=== PATIENT | male | born 1950 | race Caucasian/White ===

== ENCOUNTER 2017-07-17 19:52 | Observation (INO) | payer MEDICARE ==
[2017-07-17] MEDS ORDERED: METHYLPREDNISOLONE PF 125MG/VIAL IVP ONE (20:03)
[2017-07-17] MEDS ORDERED: IPRATROPIUM/ALBUTEROL (0.5MG/3MG) NEB INH ONE (20:03)
--- NOTE | 2017-07-17 20:09 | Emergency Department Record ---
History of Present Illness - General Stated Complaint: NASIR,VOMITTING Time Seen by Provider: 07/17/17 20:03 Source: Patient Mode of Arrival: Ambulatory Limitations: No limitations - History of Present Illness Initial Comments: 67 yo male presents with cough and shortness of breath that have been progressive for several weeks. He has a history of COPD. He does continue to smoke. He currently has increased cough and productive discolored sputum. No chest pain except occasionally hurts to cough. No hemoptysis. No edema. He does not follow closely with a PCP. He has prior admissions for COPD and carbon monoxide exposure. MD Complaint: Cough, Shortness of breath -: Days(s) Severity: Moderate Consistency: Constant Improves With: Nothing Worsens With: Coughing Known History Of: COPD Context: Recent URI, Other (smoker) Associated Symptoms: Cough Treatments Prior to Arrival: None - Related Data Allergies Allergy/AdvReac Type Severity Reaction Status Date / Time No Known Drug Allergies Allergy Verified 07/18/17 00:18 Review of Systems Constitutional: Reports: Malaise. Denies: Chills, Fever Eyes: Denies: Eye discharge ENT: Reports: Congestion Respiratory: Reports: Cough, Dyspnea, Wheezes. Denies: Hemoptysis Cardiovascular: Denies: Chest pain, Edema, Palpitations, Syncope Endocrine: Reports: Fatigue. Denies: Polydipsia, Polyuria Gastrointestinal: Denies: Abdominal pain, Constipation, Diarrhea, Nausea, Vomiting Genitourinary: Denies: Dysuria, Frequency, Hematuria, Urgency Musculoskeletal: Denies: Arthralgia, Back pain, Joint swelling, Myalgia Skin: Denies: Bruising, Change in color, Rash Neurological: Denies: Confusion, Headache, Numbness, Vertigo, Weakness Psychiatric: Denies: Anxiety Hematological/Lymphatic: Denies: Blood Clots, Easy bleeding, Easy bruising, Swollen glands Physical Exam - General General Appearance: Alert, Oriented x3, Cooperative, No acute distress Limitations: No limitations - Head Head exam: Normal inspection - Eye Eye exam: Normal appearance, PERRL. negative: Conjunctival injection, Periorbital swelling, Scleral icterus - ENT ENT exam: Normal exam, Mucous membranes moist, Normal orophraynx Ear exam: Normal external inspection Nasal Exam: Normal inspection Mouth exam: Normal external inspection Teeth exam: Normal inspection Throat exam: Normal inspection. negative: Tonsillar erythema, Tonsillomegaly, Tonsillar exudate, R peritonsillar mass, L peritonsillar mass - Neck Neck exam: Normal inspection, Full ROM. negative: Lymphadenopathy, Tenderness - Respiratory Respiratory exam: Accessory muscle use, Decreased breath sounds, Prolonged expiratory, Rhonchi, Wheezes. negative: Normal lung sounds bilaterally, Chest wall tenderness, Respiratory distress - Cardiovascular Cardiovascular Exam: Normal rhythm, Normal heart sounds, Tachycardia Peripheral Pulses: 2+: Radial (R), Radial (L) - GI/Abdominal GI/Abdominal exam: Soft. negative: Tenderness - Rectal Rectal exam: Deferred - exam: Deferred - Extremities Extremities exam: Normal inspection, Full ROM, Normal capillary refill. negative: Pedal edema, Tenderness - Back Back exam: Reports: Normal inspection, Full ROM. Denies: Muscle spasm, Rash noted, Tenderness - Neurological Neurological exam: Alert, Normal gait, Oriented X3 - Psychiatric Psychiatric exam: Normal affect, Normal mood - Skin Skin exam: Dry, Intact, Normal color, Warm Course - Reevaluation(s) Reevaluation #1: EKG 20:31 NSR Rate is 92, intervals RBBB, axis normal, ST NS changes, No old ekg 07/17/17 20:49 07/17/17 20:50 The CBC was reviewed Elevated WBC of 15.9 COHB 5 which is normal for a smoker Medical Decision Making - Lab Data Result diagrams: 07/17/17 20:15 07/17/17 20:15 Disposition Disposition: Admit Clinical Impression: COPD exacerbation Disposition: Still a Patient at [facility] Decision to Admit: Admit from ER Decision to Admit Date: 07/17/17 Decision to Admit Time: 23:00 Time of Disposition: 23:00 Quality - Quality Measures Quality Measures: N/A - Blood Pressure Screening Does Patient Have Any of the Following: No Blood Pressure Classification: Hypertensive Reading Systolic Measurement: 148 Diastolic Measurement: 72 Screening for High Blood Pressure: < Pre-Hypertensive BP, F/U Documented > [ [id number]] Pre-Hypertensive Follow-up Interventions: Referral to alternative/primary care provider.
[2017-07-17 20:35] LABS: HEMATOCRIT 46.2 % (42.0-52.0); HEMOGLOBIN 15.2 gm/dl (14.0-18.0); MEAN CELL VOLUME 92.8 fl (81-97); MEAN CORPUSCULAR HEMOGLOBIN 30.5 pg (27-33); MEAN CORPUSCULAR HGB CONC 32.9 g/dl (32-36); MEAN PLATELET VOLUME 9.7 fl (7.4-10.4); PLATELET COUNT 284 K/uL (130-400); RED BLOOD COUNT 4.98 M/uL (4.40-5.70); RED CELL DISTRIBUTION WIDTH 13.5 % (11.5-14.5); WHITE BLOOD COUNT W/O DIFF 15.9 K/uL (4.2-12.2)
[2017-07-17 20:47] LABS: BLOOD UREA NITROGEN 20 mg/dL (8-23); CREATININE 1.1 mg/dL (0.7-1.2); EST GLOMERULAR FILTRATION RATE > 60 mL/min; INFLUENZA A NEGATIVE (NEGATIVE); INFLUENZA B NEGATIVE (NEGATIVE); TOTAL PROTEIN 7.6 g/dL (6.6-8.7)
[2017-07-17 20:49] LABS: GLUCOSE,RANDOM 162 mg/dL (74-109)
[2017-07-17 20:52] LABS: ALB/GLOB RATIO 0.9 (1.1-1.8); ALBUMIN 3.7 g/dL (4.0-5.0); ALKALINE PHOSPHATASE 84 U/L (40-129); ALT/SGPT 17 U/L (<41); AST/SGOT 18 U/L (10.0-50.0)
[2017-07-17 21:33] LABS: URINE APPEARANCE CLEAR; URINE BILIRUBIN NEGATIVE (NEGATIVE); URINE BLOOD TRACE-I (NEGATIVE); URINE COLOR YELLOW; URINE GLUCOSE (UA) NEGATIVE (NEGATIVE); URINE KETONE NEGATIVE (NEGATIVE); URINE LEUKOCYTE ESTERASE NEGATIVE (NEGATIVE); URINE NITRITE NEGATIVE (NEGATIVE); URINE UROBILINOGEN 0.2 E.U./dL (0.20 - 1.00)
[2017-07-17 21:35] LABS: URINE BACTERIA NONE SEEN; URINE EPITHELIAL CELLS 0 - 2 (FEW); URINE RBC 0 - 2 (NONE SEEN); URINE WBC 0 - 2 (0-2/hpf)
[2017-07-17] MEDS ORDERED: CEFTRIAXONE SODIUM 1 GM in 0.9 % SODIUM CHLORIDE 100ML 100 ML IVPB SCH (23:40)
[2017-07-17] MEDS ORDERED: METHYLPREDNISOLONE PF 125MG/VIAL IVP SCH (23:40)
[2017-07-17] MEDS ORDERED: AZITHROMYCIN 500 MG in 0.9 % SODIUM CHLORIDE 250ML 250 ML IVPB SCH (23:40)
[2017-07-17] MEDS ORDERED: ALBUTEROL SULFATE (0.083%) 2.5 MG/3 ML NEB INH PRN (23:40)
[2017-07-17] MEDS ORDERED: ACETAMINOPHEN 500 MG TABLET PO PRN (23:40)
[2017-07-18] MEDS ORDERED: AZITHROMYCIN 500 MG in 0.9 % SODIUM CHLORIDE 250ML 250 ML IVPB SCH (01:30)
[2017-07-18] MEDS: METHYLPREDNISOLONE PF 125MG/VIAL IVP SCH ×2 (05:05→12:38)
[2017-07-18] MEDS: IPRATROPIUM/ALBUTEROL (0.5MG/3MG) NEB INH SCH ×3 (06:06→15:16)
--- NOTE | 2017-07-18 08:43 | RADIOLOGY REPORT ---
EXAM: CHEST 2 VIEWS HISTORY: DIFFICULTY IN BREATHING. TECHNIQUE: PA and lateral views. COMPARISON: None. FINDINGS: Heart size is within normal limits. No definite acute infiltrate seen. The lungs appear somewhat hyperinflated suggesting underlying COPD. No pleural effusion or pneumothorax evident. IMPRESSION: 1. THE LUNGS APPEAR SOMEWHAT HYPERINFLATED. 2. NO ACUTE INFILTRATE EVIDENT. JOB NUMBER: [id number] MTDD
[2017-07-18] MEDS ORDERED: ENOXAPARIN 40 MG/0.4 ML SYR SC SCH (10:00)
[2017-07-18] MEDS ORDERED: AZITHROMYCIN 500 MG TABLET PO SCH (10:00)
[2017-07-18] MEDS ORDERED: CEFTRIAXONE SODIUM 1 GM in 0.9 % SODIUM CHLORIDE 100ML 100 ML IVPB SCH (10:00)
--- NOTE | 2017-07-18 17:36 | Discharge Note ---
VTE H&P Assessment - Risk for VTE Risk for VTE: Yes Risk Level: Low Risk Assessment Date: 07/18/17 Risk Assessment Time: 17:30 VTE Orders Placed or Will Be Placed: Yes Discharge Medications - Discharge Medications Prescriptions: Albuterol Sulfate [Ventolin Hfa] 1 - 2 puff IH .EVERY 4-6 HRS PRN #1 inhaler PRN Reason: Wheezing Albuterol Sulfate 0.083% [Neb] 2.5 mg INH RESP.Q4H.WA PRN #120 nebulization solution PRN Reason: Difficulty In Breathing Azithromycin [Zithromax] 500 mg PO DAILY #10 tab Prednisone [Prednisone 10Mg] 10 mg PO ASDIR #30 tab Home Medications: Ambulatory Orders Albuterol Sulfate 0.083% [Neb] 2.5 mg INH RESP.Q4H.WA PRN #120 nebulization solution 07/18/17 [Last Taken Unknown] Albuterol Sulfate [Ventolin Hfa] 1 - 2 puff IH .EVERY 4-6 HRS PRN #1 inhaler [Last Taken Unknown] Azithromycin [Zithromax] 500 mg PO DAILY #10 tab 07/18/17 [Last Taken Unknown] Prednisone [Prednisone 10Mg] 10 mg PO ASDIR #30 tab 07/18/17 [Last Taken Unknown ] Discharge Note - Date Date of Discharge Note: 07/18/17 Disposition: Home, Self-Care Condition: (1) Good Additional Instructions: follow up with [facility] in 7 days take prednisone 4 pills a day for three days, than 3 pills a day for three days than 2 pills a day for 3 days than 1 pill a day for 3 days Use home oxygen 2 litters per minute at rest and 3 litters per min while walking
--- NOTE | 2017-07-19 17:30 | Discharge Summary ---
DATE: 07/18/2017 DISCHARGE DIAGNOSES: 1. Acute bronchitis. 2. Acute exacerbation of chronic obstructive pulmonary disease. 3. Chronic hypoxia and on home oxygen 2L/min at rest, 3L/min with activity. 4. Tobacco use disorder. He states that he is going to stop smoking. ATTENDING PHYSICIAN: Mark Edmond DO REASON FOR HOSPITALIZATION: This 67-year-old female presented to the emergency department short of breath. He stated he progressively got worse over the last week; however, he has had problems with COPD and using home oxygen for a long time. He states he is very noncompliant. He does not have any home medications. He is not very compliant with using his oxygen. He keeps blowing out the fuses for the oxygen machine. He only uses tanks. However, he said he is going to resolve that problem and stay inside the house instead of in a trailer. He was evaluated in the emergency department by Dr. Sanchez with a diagnosis of acute bronchitis with exacerbation of COPD. He was unsure about the use of home oxygen and if he would safely be able to use his oxygen at home because he was not sure if he actually had the home oxygen at home. He has hypoxia and chronic home oxygen use, and he was admitted to the hospital for observation. SIGNIFICANT FINDINGS: Chest x-ray showing COPD. No infiltrates. WBC 15,900, hemoglobin 15.2, carboxyhemoglobin 5.2 from smoking, potassium 4.5. Troponin T was slightly in the indeterminate range at 0.15. It came down the second set of enzymes at 0.010. No chest pain. He has dyspnea but no chest pain and no nausea. Influenza A and B were negative. The urine was negative except for protein in the urine, trace of blood, 0-2 RBCs. THERAPY PROVIDED: The patient was given IV Solu-Medrol, Rocephin IV, azithromycin IV, DuoNeb treatments, and IV Solu-Medrol. Fluids. The patient was feeling much better and wanted to go home on the day of my evaluation. HOSPITAL COURSE: He is improved. He is still coughing up some yellow sputum but at this point he is ambulatory with oxygen on at 3L/min nasal cannula. Stays above 87% and at rest he is with 2L/min nasal cannula about 94% to 95%. CONDITION ON DISCHARGE: Much improved. DISCHARGE INSTRUCTIONS: 1. Follow up with [facility] where he has been going before. 2. Use home oxygen at 2L/min at rest, 3L/min with walking all the time. He desaturates in 10 minutes. Start prednisone tomorrow 40 mg a day for 3 days and then 30 mg a day for 3 days 20 mg a day for 3 days and 10 mg a day for 3 days. Azithromycin 500 mg a day. Albuterol nebulization q.i.d. while awake. Ventolin rescue inhaler 2 puffs q.4 h. while away from home and he cannot use nebulizer. [facility]
--- NOTE | 2017-07-19 17:40 | History and Physical Report ---
DATE OF ADMISSION: 07/17/2017 CHIEF COMPLAINT: Dyspnea. HISTORY OF PRESENT ILLNESS: This 67-year-old male presented to the emergency department short of breath for a week, progressively getting worse with yellow sputum. Seen in the emergency department by Dr. Sanchez who admitted him for acute bronchitis exacerbation and COPD. The patient states that his oxygen condenser at home, which he is on chronic home oxygen, was not working. He was blowing out fuses in his trailer. He uses just portable oxygen tanks. He also continues to smoke and his carboxyhemoglobin is 5.2. His has bronchitis also. PAST MEDICAL HISTORY: COPD, hypoxia on chronic home oxygen therapy, previous TIAs. He has had diabetes mellitus type 2 but not on any medications. Sugar was 160. No drug use. Rare alcohol use. FAMILY HISTORY: Brother and sisters had cancer. SOCIAL HISTORY: Smokes heavy, cigarettes, a pack a day at least. Rare alcohol. No drug use. MEDICATIONS: No home medications. He is a noncompliant patient. Does not follow up with his family doctor as he should. ALLERGIES: No known drug allergies. REVIEW OF SYSTEMS: HEENT: See Chief Complaint. He has congestion, cough, cold, and productive sputum. Cardiovascular: No chest pain, palpitations, or arrhythmias. No orthopnea or edema of his legs. Respiratory: He is short of breath, cough, congestion with yellow sputum. Smoking history is positive most of his life. Gastrointestinal: No nausea, vomiting, diarrhea, black stools, or bloody stools. Genitourinary: No dysuria, hematuria, frequency, or burning on urination. Musculoskeletal: No joint or bone abnormalities. Neurological: No CVA, paralysis, or paresthesias. Endocrine: He does have type 2 diabetes mellitus and not on any medications. Integument: No rash, ulcers, change in moles, or yellow skin. PHYSICAL EXAMINATION: VITALS: Height 6 feet, weight 196 pounds. Temperature 97.7, pulse 92, pulse ox 95%, blood pressure 134/72, pulse ox is 93% on 2L nasal cannula, respiratory rate is 16. HEENT: Pupils are equal, round, and reactive to light and accommodation. Extraocular muscles are intact. Throat is clear. Nose is clear. Tympanic membranes are barnhart. NECK: Supple. No jugular venous distention. No hepatojugular reflux. No carotid bruits. Thyroid is smooth. CARDIOVASCULAR: Regular rate and rhythm without murmurs, clicks, rubs, or gallops. RESPIRATORY: Decreased breath sounds bilaterally. Some squeaky wheezing in the right lower lobe. ABDOMEN: Soft, nontender. No hepatosplenomegaly, no masses, no tenderness. Bowel sounds are active. No bruits. EXTREMITIES: No pitting edema. No cyanosis, no clubbing. Full range of motion. Peripheral pulses are good. BREASTS: Normal male breasts. RECTAL: Exam deferred. GENITALIA: Deferred. NEUROLOGIC: Cranial nerves II-XII intact. No gross defects. Sensation normal, strength normal. Deep tendon reflexes equal bilaterally with Babinski negative. MENTAL STATUS: Alert and oriented x3. IMPRESSION: 1. Acute bronchitis. 2. Acute exacerbation of chronic obstructive pulmonary disease. 3. Diabetes mellitus type 2, diet controlled and he is not compliant with following up with family doctor. PLAN: IV Rocephin 1 g q.12 h. Azithromycin 500 mg daily. Solu-Medrol q.8 h. 60 mg. DuoNeb treatment and albuterol every 1-2 hours p.r.n. We will check out his home oxygen situation. We will qualify him for home oxygen because I am not sure if he has been qualified in the last year or two. ALEXANDER
== END 2017-07-18 19:01 | disposition home or self-care (01) ==
LOC: ER 19:52 → MEDSURG 22:51
PROVIDERS: ADMIT Emergency Medicine; ATTEND Emergency Medicine
DX: J44.1 Chronic obstructive pulmonary disease with (acute) exacerbation (principal); E11.9 Type 2 diabetes mellitus without complications; Z91.11 Patient's noncompliance with dietary regimen; F17.210 Nicotine dependence, cigarettes, uncomplicated; Z86.73 Personal history of transient ischemic attack (TIA), and cerebral infarction without residual deficits
CPT/HCPCS: 71020; 80053; 81001; 82375; 84484; 85027; 87400; 93005; 93010; 93041; 94620; 94640; 94761; 96374; 99220; 99285; J0456; J1650; J2930; J7050

== ENCOUNTER 2018-03-05 19:27 | Emergency (ER) | payer MEDICARE ==
[2018-03-05] MEDS ORDERED: METHYLPREDNISOLONE PF 125MG/VIAL IVP ONE (19:32)
[2018-03-05] MEDS ORDERED: IPRATROPIUM/ALBUTEROL (0.5MG/3MG) NEB INH ONE (19:32)
[2018-03-05 19:44] LABS: BASO % 0.2 % (0-6); EOS % 0.3 % (0-6); GRAN % 72.7 % (47-80); HEMATOCRIT 47.3 % (42.0-52.0); HEMOGLOBIN 14.9 gm/dl (14.0-18.0); LYMPH % 18.5 % (16-45); MEAN CELL VOLUME 96.9 fl (81-97); MEAN CORPUSCULAR HEMOGLOBIN 30.5 pg (27-33); MEAN CORPUSCULAR HGB CONC 31.5 g/dl (32-36); MEAN PLATELET VOLUME 9.1 fl (7.4-10.4); MONO % 8.3 % (0-9); PLATELET COUNT 175 K/uL (130-400); RED BLOOD COUNT 4.88 M/uL (4.40-5.70); WHITE BLOOD COUNT W/O DIFF 9.9 K/uL (4.2-12.2)
--- NOTE | 2018-03-05 19:48 | Emergency Department Record ---
History of Present Illness - General Chief Complaint: Shortness of breath Stated Complaint: NASIR Time Seen by Provider: 03/05/18 19:32 Source: Patient, Family - History of Present Illness Initial Comments: The patient states he has felt like he was getting sick since yesterday with sneezing, clear runny nose, and NASIR which is chronic. He also has had increased weakness, and increased NASIR with minimal exertion. He denies sore throat , productive cough, chest pain, abdominal pain. His legs are always tight but don' t swell. He has long history of COPD, he is a 60 plus pack year current smoker with history of pneumonia, and diabetes for which he was prescribed pills, not insulin. He states he has NOT been taking any meds for at least 6 months. In the past he has had htn, a "small stroke," butr he denies PEm, DVT, NC. He has an allergy to iodine. 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 MD Complaint: Shortness of breath - Related Data Previous Rx's Medication Instructions Recorded Albuterol Sulfate 0.083% [Neb] 2.5 mg INH RESP.Q4H.WA PRN #120 07/18/17 nebulization solution Albuterol Sulfate [Ventolin Hfa] 1 - 2 puff IH .EVERY 4-6 HRS PRN 07/18/17 #1 inhaler Azithromycin [Zithromax] 500 mg PO DAILY #10 tab 07/18/17 Prednisone [Prednisone 10Mg] 10 mg PO ASDIR #30 tab 07/18/17 Allergies Allergy/AdvReac Type Severity Reaction Status Date / Time iodine Allergy ANAPHYLAXIS Verified 03/05/18 19:43 Review of Systems Reviewed: No additional complaints except as noted below Constitutional: Reports: As per HPI. Denies: Chills, Fever, Malaise, Night sweats, Weakness, Weight change Eyes: Reports: As per HPI. Denies: Eye discharge, Eye pain, Photophobia, Vision change ENT: Reports: As per HPI. Denies: Congestion, Dental pain, Ear pain, Epistaxis , Hearing loss, Throat pain Respiratory: Reports: As per HPI. Denies: Cough, Dyspnea, Hemoptysis, Stridor, Wheezes Cardiovascular: Reports: As per HPI. Denies: Arrhythmia, Chest pain, Dyspnea on exertion, Edema, Murmurs, Orthopnea, Palpitations, Paroxysmal nocturnal dyspnea, Rheumatic Fever, Syncope Endocrine: Reports: As per HPI. Denies: Fatigue, Heat or cold intolerance, Polydipsia, Polyuria Gastrointestinal: Reports: As per HPI. Denies: Abdominal pain, Constipation, Diarrhea, Hematemesis, Hematochezia, Melena, Nausea, Vomiting Genitourinary: Reports: As per HPI. Denies: Dysuria, Frequency, Hematuria, Incontinence, Retention, Testicular pain, Testicular mass, Urgency Musculoskeletal: Reports: As per HPI. Denies: Arthralgia, Back pain, Gout, Joint swelling, Myalgia, Neck pain Skin: Reports: As per HPI. Denies: Bruising, Change in color, Change in hair/ nails, Lesions, Pruritus, Rash Neurological: Reports: As per HPI. Denies: Abnormal gait, Confusion, Headache, Numbness, Paresthesias, Seizure, Tingling, Tremors, Vertigo, Weakness Psychiatric: Reports: As per HPI. Denies: Anxiety, Auditory hallucinations, Depression, Homicidal thoughts, Suicidal thoughts, Visual hallucinations Hematological/Lymphatic: Reports: As per HPI. Denies: Anemia, Blood Clots, Easy bleeding, Easy bruising, Swollen glands Past Medical History - SOCIAL HISTORY Smoking Status: Heavy tobacco smoker (>10/day) Drug Use: None - RESPIRATORY Hx Respiratory Disorders: Yes Hx COPD: Yes - CARDIOVASCULAR Hx Cardio Disorders: No Hx Hypertension: Yes - NEURO Hx Neuro Disorders: Yes Hx CVA: Yes Hx TIA: Yes - GI Hx GI Disorders: No - Hx Genitourinary Disorders: No - ENDOCRINE Hx Endocrine Disorders: Yes Hx Diabetes: Yes (DMII) - MUSCULOSKELETAL Hx Musculoskeletal Disorders: No - PSYCH Hx Psych Problems: No - HEMATOLOGY/ONCOLOGY Hx Hematology/Oncology Disorders: No Family Medical History Hx Cancer: Mother, Brother/Sister Physical Exam - General General Appearance: Alert, Oriented x3, Cooperative, Moderate distress (low biox but able to speak full sentences) - Head Head exam: Normal inspection - Eye Eye exam: Normal appearance, EOMI, Other (Right eye blind (since childhood), left eye with mid-size pupil and reactive to light) Pupils: Normal accommodation - ENT ENT exam: Normal exam, Mucous membranes moist, Normal external ear exam, Normal orophraynx, TM's normal bilaterally Ear exam: Normal external inspection. negative: External canal tenderness Nasal Exam: Normal inspection. negative: Discharge, Sinus tenderness Mouth exam: Normal external inspection, Tongue normal Teeth exam: Normal inspection. negative: Dental caries Throat exam: Normal inspection. negative: Tonsillar erythema, Tonsillar exudate - Neck Neck exam: Normal inspection, Full ROM. negative: Tenderness - Respiratory Respiratory exam: Decreased breath sounds, Prolonged expiratory, Respiratory distress, Wheezes (distant expiratory wheezes bilaterally) - Cardiovascular Cardiovascular Exam: Normal rhythm, Normal heart sounds, Tachycardia - GI/Abdominal GI/Abdominal exam: Soft, Normal bowel sounds. negative: Tenderness - Rectal Rectal exam: Deferred - exam: Deferred - Extremities Extremities exam: Normal inspection, Full ROM, Normal capillary refill, Pedal edema (skint extremely tight in calves bilaterally with one point of oozing of clear fluid on yang; chroncic vascular changes to lower extremities). negative : Calf tenderness, Tenderness - Back Back exam: Reports: Normal inspection, Full ROM. Denies: CVA tenderness (R), CVA tenderness (L), Muscle spasm, Rash noted, Tenderness - Neurological Neurological exam: Alert, CN II-XII intact, Normal gait, Oriented X3, Reflexes normal - Psychiatric Psychiatric exam: Normal affect, Normal mood - Skin Skin exam: Dry, Intact, Normal color, Warm Course - Reevaluation(s) Reevaluation #1: Patient has improved his breathing after duoneb, lasix, and oxygen. He states earlier today he had chest pain but has not had any during this visit. 03/05/18 21:[address] Tellez who accepts patient in transfer. Patient is in agreement with plan of transfer to [facility]. 03/05/18 21:32 Medical Decision Making - Management Options MDM Management: Additional Work-up Planned (e.g. ADM/Transfer/OP Study) ( Transfer To [facility] for direct Admit to Dr. Tellez) - Data Complexity MDM Data: Labs Ordered and/or Reviewed (D dimer 0.92; troponin indeterminate 0.030), X-Ray Ordered and/or Reviewed (CXR Two view: mucosal thickening consistent with bronchitis per Radiologist.), EKG Ordered and/or Reviewed (NSR 93, LAD, LAFB, LVH, RBBB, no ST elevation) - Lab Data Result diagrams: 03/05/18 19:37 03/05/18 19:37 Disposition Disposition: Transfer Clinical Impression: COPD exacerbation, Troponin I above reference range, D-dimer, elevated, Bronchitis Disposition: Acute Care Hospital Transfer Decision to Admit: Admit from ER Transfer To: [facility] Reason For Transfer: abnormal troponin and d dimer, COPD exacerbation, patient request Accepting Physician: Dr. Tellez Time Discussed w/Accepting Physician: 21:36 Condition: (1) Good Forms: Patient Portal Access Quality - Quality Measures Quality Measures: N/A - Blood Pressure Screening Does Patient Have Any of the Following: No Blood Pressure Classification: Hypertensive Reading Systolic Measurement: 147 Diastolic Measurement: 70 Screening for High Blood Pressure: Patient Exclusion, Hx of HTN [G9744]
[2018-03-05 19:53] LABS: BLOOD UREA NITROGEN 18 mg/dL (8-23); CREATININE 1.2 mg/dL (0.7-1.2); EST GLOMERULAR FILTRATION RATE > 60 mL/min
[2018-03-05 19:54] LABS: TOTAL PROTEIN 6.6 g/dL (6.6-8.7)
[2018-03-05 19:56] LABS: GLUCOSE,RANDOM 132 mg/dL (74-109)
[2018-03-05 19:59] LABS: ALB/GLOB RATIO 1.2 (1.1-1.8); ALBUMIN 3.6 g/dL (4.0-5.0); ALKALINE PHOSPHATASE 76 U/L (40-129); ALT/SGPT 22 U/L (<41); AST/SGOT 22 U/L (10.0-50.0)
[2018-03-05] MEDS ORDERED: AZITHROMYCIN 500 MG TABLET PO ONE (21:01)
[2018-03-05] MEDS ORDERED: CEFTRIAXONE SODIUM 1 GM in 0.9 % SODIUM CHLORIDE 100ML 100 ML IVPB ONE (21:01)
[2018-03-05] MEDS ORDERED: FUROSEMIDE IV 40MG/4ML VIAL IVP ONE (21:31)
[2018-03-05] MEDS ORDERED: ASPIRIN 325 MG TAB ENTERIC-COATED PO ONE (21:33)
--- NOTE | 2018-03-07 10:32 | RADIOLOGY REPORT ---
EXAM: CHEST, TWO VIEWS HISTORY: DIFFICULTY BREATHING. TECHNIQUE: Frontal and lateral views of the chest were performed. Comparison: 07/17/17. FINDINGS: The heart size is at the upper limits of normal. No pulmonary vascular congestion. There is mild bronchial wall thickening in the left lower lobe. No definitive infiltrate or pleural effusion. IMPRESSION: MILD BRONCHIAL WALL THICKENING IN THE INFERIOR LEFT LOWER LOBE. NO DEFINITIVE INFILTRATE OR PLEURAL EFFUSION. JOB NUMBER: [id number] MTDD
== END 2018-03-05 22:48 | disposition short-term general hospital (02) ==
LOC: ER 19:27
DX: J44.1 Chronic obstructive pulmonary disease with (acute) exacerbation (principal); J20.9 Acute bronchitis, unspecified; J44.0 Chronic obstructive pulmonary disease with (acute) lower respiratory infection; R79.89 Other specified abnormal findings of blood chemistry; E11.9 Type 2 diabetes mellitus without complications; I10 Essential (primary) hypertension; F17.210 Nicotine dependence, cigarettes, uncomplicated; Z86.73 Personal history of transient ischemic attack (TIA), and cerebral infarction without residual deficits; Z79.84 Long term (current) use of oral hypoglycemic drugs
CPT/HCPCS: 71046; 80053; 83605; 83880; 84484; 85025; 85379; 93005; 93010; 94640; 96365; 96375; 99285; J1940; J2930

== ENCOUNTER 2019-03-27 09:11 | Emergency (ER) | payer MEDICARE ==
--- NOTE | 2019-03-27 10:52 | Emergency Department Record ---
History of Present Illness - General Chief complaint: Lower Extremity Pain Stated complaint: FIBERMYALGIA FLARE UP Time Seen by Provider: 03/27/19 10:42 Source: Patient Mode of Arrival: Ambulatory Limitations: No limitations - History of Present Illness Initial comments: The patient is here due to bilateral lower leg swelling for 2-3 weeks. He has a hx of leg edema and is supposed to be taking Lasix but stopped it many months ago. Now his legs have been swelling and weeping for weeks. The patient denies any pain, fever, chills, CP, SOB, NASIR, or [place]. He does wear home O2 at times and still smokes. MD Complaint: Extremity swelling Onset/Timin -: Week(s) Location: Bilateral, Lower Leg History of Same: No Improves with: Immobilization Worsens with: Walking, Weight bearing - Related Data Previous Rx's Medication Instructions Recorded Albuterol Sulfate 0.083% [Neb] 2.5 mg INH [id number] PRN #120 07/18/17 [Albuterol Sulfate] nebulization solution Albuterol Sulfate [Ventolin Hfa] 1 - 2 puff IH .EVERY 4-6 HRS PRN 07/18/17 #1 inhaler Cephalexin [Keflex] 500 mg PO TID #21 cap 03/27/19 Furosemide [Lasix] 20 mg PO DAILY #7 tablet 03/27/19 Potassium Chloride 20 meq PO DAILY #7 tab.er.prt 03/27/19 Allergies Allergy/AdvReac Type Severity Reaction Status Date / Time iodine Allergy ANAPHYLAXIS Verified 03/05/18 19:43 Travel Screening - Travel/Exposure Within Last 30 Days Have you traveled within the last 30 days?: No Review of Systems Constitutional: Denies: Chills, Fever, Malaise Eyes: Denies: Eye discharge ENT: Denies: Congestion Respiratory: Denies: Cough, Dyspnea Cardiovascular: Denies: Arrhythmia Endocrine: Denies: Fatigue Gastrointestinal: Denies: Constipation, Nausea Genitourinary: Denies: Hematuria Musculoskeletal: Denies: Back pain Skin: Denies: Bruising Neurological: Denies: Abnormal gait, Confusion Past Medical History - SOCIAL HISTORY Smoking Status: Current every day smoker Alcohol Use: None Drug Use: None - RESPIRATORY Hx Respiratory Disorders: Yes Hx COPD: Yes Hx Sleep Apnea: Yes Hx of CPAP: Yes Comment:: O2 as needed - CARDIOVASCULAR Hx Cardio Disorders: Yes Hx Edema: Yes Hx Hypertension: Yes - NEURO Hx Neuro Disorders: Yes Hx CVA: Yes Hx TIA: Yes - GI Hx GI Disorders: No - Hx Genitourinary Disorders: No - ENDOCRINE Hx Endocrine Disorders: Yes Hx Diabetes: Yes (DMII) - MUSCULOSKELETAL Hx Musculoskeletal Disorders: No Hx Fibromyalgia: Yes - PSYCH Hx Psych Problems: No - HEMATOLOGY/ONCOLOGY Hx Hematology/Oncology Disorders: No Family Medical History Any Significant Family History?: Yes Hx Cancer: Mother, Brother/Sister Physical Exam - General General Appearance: Alert, Oriented x3, Cooperative, No acute distress - Head Head exam: Atraumatic, Normocephalic, Normal inspection - Eye Eye exam: Normal appearance, PERRL - ENT Throat exam: Normal inspection. negative: Tonsillar erythema, Tonsillar exudate - Neck Neck exam: Normal inspection, Full ROM. negative: Tenderness - Respiratory Respiratory exam: Normal lung sounds bilaterally. negative: Accessory muscle use, Rales, Respiratory distress, Rhonchi, Stridor, Wheezes - Cardiovascular Cardiovascular Exam: Regular rate, Normal rhythm, Normal heart sounds. negative: Diastolic murmur, Systolic murmur - GI/Abdominal GI/Abdominal exam: Soft, Normal bowel sounds. negative: Tenderness - Extremities Extremities exam: Pedal edema (2+ and equal bilaterally.), Other (There is bilateral anterior lower leg erythema with mild warmth.). negative: Normal inspection, Calf tenderness, Tenderness - Neurological Neurological exam: Alert, Normal gait, Oriented X3. negative: Abnormal gait, Altered, Motor sensory deficit Course Vital Signs 03/27/19 10:39 Temperature 97.7 F Pulse Rate 82 Respiratory 18 Rate Blood Pressure 184/100 Pulse Ox 98 - Reevaluation(s) Reevaluation #1: The patient is doing better at this time. He has urinated twice and denies any CP, SOB, or NASIR. 03/27/19 13:02 Reevaluation #2: The patient is doing well at this time. He denies any CP or SOB and is resting comfortably. I did discuss the cardiac enzymes and the fact they are borderline abnormal and due to that I do recommend hospital admission. The patient is refusing that plan and would like to go home. He states he urinated 4-5 times and is feeling much better. I also explained that the patient will need to sign out AMA due to the fact he is refusing admission. I did explain the risks of leaving which include going home and having an PR, stroke, becoming disabled and even dying. The patient and fully understand the and accept the risks. The patient was instructed to see his PCP next week for recheck and to return to the ER for any worsening symptoms. 03/27/19 15:04 Medical Decision Making - Data Complexity MDM Data: Labs Ordered and/or Reviewed, X-Ray Ordered and/or Reviewed, EKG Ordered and/or Reviewed - Lab Data Result diagrams: 03/27/19 11:25 03/27/19 11:25 - EKG Data -: EKG Interpreted by Me EKG: No Acute Changes, Unchanged From Previous - Radiology Data Radiology results: Report reviewed (CXR: Neg for acute changes.) Disposition Disposition: Discharge Clinical Impression: CHF (congestive heart failure) Qualifiers: Heart failure type: unspecified Heart failure chronicity: unspecified Qualified Code(s): I50.9 - Heart failure, unspecified Disposition: Against Medical Advice Condition: (2) Stable Instructions: Heart Failure (ED), Leg Edema (ED) Additional Instructions: Please continue your regular medicines and take the Lasix, potassium and Keflex. Please see your doctor for recheck in 3-4 days and return to the ER for any worsening symptoms. Prescriptions: Cephalexin [Keflex] 500 mg PO TID #21 cap Furosemide [Lasix] 20 mg PO DAILY #7 tablet Potassium Chloride 20 meq PO DAILY #7 tab.er.prt Forms: Patient Portal Access Time of Disposition: 15:10 Quality - Quality Measures Quality Measures: N/A - Blood Pressure Screening View Details: Yes Does Patient Have Any of the Following: Active Dx of HTN Blood Pressure Classification: Hypertensive Reading Systolic Measurement: 184 Diastolic Measurement: 100 Screening for High Blood Pressure: Patient Exclusion, Hx of HTN [[id number]]
[2019-03-27 11:24] LABS: ABSOLUTE NEUTROPHIL COUNT 4.62; BASO % 0.3 % (0-6); EOS % 1.1 % (0-6); GRAN % 58.6 % (47-80); HEMATOCRIT 50.1 % (42.0-52.0); LYMPH % 29.4 % (16-45); MEAN CELL VOLUME 94.7 fl (81-97); MEAN CORPUSCULAR HEMOGLOBIN 30.2 pg (27-33); MEAN CORPUSCULAR HGB CONC 31.9 g/dl (32-36); MEAN PLATELET VOLUME 10.1 fl (7.4-10.4); MONO % 10.6 % (0-9); PLATELET COUNT 164 K/uL (130-400); RED BLOOD COUNT 5.29 M/uL (4.40-5.70); RED CELL DISTRIBUTION WIDTH 13.9 % (11.5-14.5); WHITE BLOOD COUNT W/O DIFF 7.9 K/uL (4.2-12.2)
[2019-03-27 11:39] LABS: BLOOD UREA NITROGEN 25 mg/dL (8-23); EST GLOMERULAR FILTRATION RATE > 60 mL/min
[2019-03-27 11:40] LABS: TOTAL PROTEIN 6.6 g/dL (6.6-8.7)
[2019-03-27 11:42] LABS: GLUCOSE,RANDOM 150 mg/dL (74-109)
[2019-03-27 11:44] LABS: ALT/SGPT 18 U/L (<41)
[2019-03-27 11:45] LABS: ALB/GLOB RATIO 1.4 (1.1-1.8); ALBUMIN 3.8 g/dL (4.0-5.0); ALKALINE PHOSPHATASE 79 U/L (40-129); AST/SGOT 21 U/L (10.0-50.0)
[2019-03-27] MEDS ORDERED: FUROSEMIDE IV 40MG/4ML VIAL IVP ONE (12:11)
[2019-03-27 14:39] LABS: CKMB 9.1 ng/mL (<6.73)
[2019-03-27 14:46] LABS: CKMB RELATIVE INDEX 5.7 % (0-4)
--- NOTE | 2019-03-29 21:02 | RADIOLOGY REPORT ---
EXAM: CHEST 2 VIEWS HISTORY: SWELLING IN THE LEGS. TECHNIQUE: Two views of the chest. COMPARISON: 03/05/2018. FINDINGS: The heart is borderline enlarged. The mediastinum appears normal. The lungs are clear. There is no edema, effusion, pneumonia, or pneumothorax. The skeletal structures are unremarkable. IMPRESSION: NO EVIDENCE OF PULMONARY EDEMA OR OTHER ACUTE CHEST PATHOLOGY. JOB NUMBER: [id number] MTDD
== END 2019-03-27 15:44 | disposition left against medical advice (07) ==
LOC: ER 09:11
DX: I50.9 Heart failure, unspecified (principal); R74.0 Nonspecific elevation of levels of transaminase and lactic acid dehydrogenase [LDH]; J44.9 Chronic obstructive pulmonary disease, unspecified; F17.210 Nicotine dependence, cigarettes, uncomplicated; E11.9 Type 2 diabetes mellitus without complications; I10 Essential (primary) hypertension; Z99.81 Dependence on supplemental oxygen
CPT/HCPCS: 71046; 80053; 82550; 82553; 83880; 84484; 85025; 93005; 93010; 96374; 99285; J1940